=== PATIENT | male | born 1990 | race Caucasian/White ===

== ENCOUNTER 2016-02-18 12:38 | Outpatient (RCR) | payer OTHER ==
[~2016-02-18 12:38] MED LIST: CELE100C PO; HYDR-3720 PO; HYDR60TA; NAPR500T3; TAPE100T; ultram
== END 2016-05-18 | disposition home or self-care (01) ==
LOC: LAB 12:38
PROVIDERS: ATTEND Obstetrics & Gynecology
DX: N46.11 Organic oligospermia (principal)

== ENCOUNTER 2016-06-26 11:47 | Emergency (ER) | payer OTHER ==
[~2016-06-26] VITALS: Ht 182.9 cm; Wt 90.7 kg
[2016-06-26 11:50] VITALS: BP 134/109
[2016-06-26] MEDS ORDERED: ONDANSETRON 4 MG/2 ML (SDV) Z0FRAN ONE (11:53)
[2016-06-26] MEDS ORDERED: TRAM50TA2 (12:02)
[2016-06-26 12:09] LABS: BASOPHILS % (AUTO) 0 % (0-10); EOSINOPHILS # (AUTO) 0.1 10^3/uL (0.0-0.3); EOSINOPHILS % (AUTO) 1 % (0-10); LYMPHOCYTES # (AUTO) 1.8 X 10^3 (1.0-4.0); LYMPHOCYTES % (AUTO) 12 % (12-44); MEAN CORPUSCULAR HEMOGLOBIN 32 PG (25-34); MEAN CORPUSCULAR HGB CONC 36 G/DL (32-36); MEAN CORPUSCULAR VOLUME 88 FL (80-99); MONOCYTES # (AUTO) 0.5 X 10^3 (0.0-1.0); MONOCYTES % (AUTO) 4 % (0-12); NEUTROPHILS # (AUTO) 11.8 X 10^3 (1.8-7.8); NEUTROPHILS % (AUTO) 83 % (42-75); PLATELET COUNT 343 10^3/uL (130-400); RED BLOOD COUNT 5.34 10^6/uL (4.35-5.85); RED CELL DISTRIBUTION WIDTH 13.4 % (10.0-14.5); WHITE BLOOD COUNT 14.2 10^3/uL (4.3-11.0)
[2016-06-26 12:25] LABS: ALANINE AMINOTRANSFERASE 19 U/L (0-55); ALBUMIN 4.7 G/DL (3.2-4.5); ANION GAP 14 MMOL/L (5-14); ASPARTATE AMINO TRANSFERASE 18 U/L (5-34); BILIRUBIN,TOTAL 0.5 MG/DL (0.1-1.0); BLOOD UREA NITROGEN 11 MG/DL (7-18); BUN/CREATININE RATIO 13; CALCIUM 9.9 MG/DL (8.5-10.1); CARBON DIOXIDE 18 MMOL/L (21-32); CHLORIDE 109 MMOL/L (98-107); CREATININE SERUM 0.84 MG/DL (0.60-1.30); GFR ESTIMATED > 60; GLUCOSE 98 MG/DL (70-105); POTASSIUM 3.8 MMOL/L (3.6-5.0); SODIUM 141 MMOL/L (135-145); TOTAL PROTEIN 7.7 G/DL (6.4-8.2)
[2016-06-26 12:27] LABS: BAND NEUTROPHILS 4 %; EOSINOPHILS % (MANUAL) 2 %; LYMPHOCYTES % (MANUAL) 12 %; NEUTROPHILS % (MANUAL) 79 %
--- NOTE | 2016-06-26 12:46 | ED Abdominal Pain ---
General Chief Complaint: Abdominal/GI Problems Stated Complaint: VOMITING/BODY ACHES Nursing Triage Note: PT CO OF N/V/D SINCE MONDAY, PT PALE STATES IS WEAK Sepsis Screen: No Definite Risk Source of Information: Patient Exam Limitations: No Limitations History of Present Illness Time Seen By Provider: 12:42 Initial Comments The patient is a 25-year-old white male who presents today with a complaint of nausea vomiting diarrhea and generalized body aches. This apparently began 3 days ago. 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 His fluid intake has been poor and complicated by vomiting. He had an admission in August 2015 after being exposed to prolonged heat at work. He exhibited a decline in his renal function with a creatinine in the 2+ range. He has subsequently done well until now. Timing/Duration: 2-3 Days Severity/Quality: Moderate Location: Generalized Abdomen Radiation: No Radiation Activities at Onset: None Associated Symptoms: Denies Symptoms Allergies and Home Medications Allergies Coded Allergies: adhesive tape (Unverified Allergy, Unknown, 09/01/15) prednisone (Verified Adverse Reaction, Unknown, 08/29/15) Home Medications Tramadol HCl 50 Mg Tablet, #120 (Reported) Review of Systems Constitutional: see HPI EENTM: No Symptoms Reported Respiratory: No Symptoms Reported Cardiovascular: No Symptoms Reported Gastrointestinal: Abdominal Pain, Diarrhea, Nausea, Poor Appetite, Poor Fluid Intake, Vomiting Genitourinary: Other Musculoskeletal: muscle pain Skin: no symptoms reported Psychiatric/Neurological: No Symptoms Reported Endocrine: No Symptoms Reported Hematologic/Lymphatic: No Symptoms Reported Past Cvlndoj-Nwbver-Exxdku Hx Patient Social History Alcohol Use: Denies Use Recreational Drug Use: No Smoking Status: Current Everyday Smoker Type Used: Cigarettes Recent Foreign Travel: No Contact w/Someone Who Travel: No Recent Infectious Disease Expo: No Recent Hopitalizations: No (recently hospitalized for acute renal failure) Immunizations Up To Date Tetanus Booster (TDap): Less than 5yrs Seasonal Allergies Seasonal Allergies: Yes Surgeries HX Surgeries: Yes (back, hips) Surgeries: Orthopedic Respiratory Hx Respiratory Disorders: Yes Respiratory Disorders: Asthma Cardiovascular Hx Cardiac Disorders: No Neurological Hx Neurological Disorders: No Reproductive System Hx Reproductive Disorders: No Sexually Transmitted Disease: No HIV/AIDS: No Genitourinary Hx Genitourinary Disorders: Yes Genitourinary Disorders: Kidney Stones, Renal Failure Gastrointestinal Hx Gastrointestinal Disorders: Yes Gastrointestinal Disorders: Chronic Constipation Musculoskeletal Hx Musculoskeletal Disorders: Yes Musculoskeletal Disorders: Arthritis, Chronic Back Pain Endocrine Hx Endocrine Disorders: No HEENT HX ENT Disorders: No Loss of Vision: Denies Hearing Impairment: Denies Cancer Hx Cancer: No Psychosocial Hx Psychiatric Problems: No Integumentary HX Skin/Integumentary Disorder: No Blood Transfusions Hx Blood Disorders: No Adverse Reaction to a Blood Tr: No Family Medical History Family Medial History: Diabetes mellitus 19 FATHER (FAMILY HISTORY OF [place], CHF, LUNG CA, BREAST, CA, [place], DEMENTIA , AND DMTYPE 2) 19 MOTHER Physical Exam Vital Signs VS - Last 72 Hours, by Label 06/26/16 11:50 Temp 99.8 Pulse 79 Resp 18 B/P (MAP) 134/109 Pulse Ox 97 Capillary Refill : Less Than 3 Seconds General Appearance: moderate distress HEENT: normal ENT inspection, other (tongue is dry) Neck: full range of motion Respiratory: chest non-tender, lungs clear, normal breath sounds, no respiratory distress, no accessory muscle use Cardiovascular: normal peripheral pulses, regular rate, rhythm, no edema, no gallop, no JVD, no murmur Gastrointestinal: non tender, soft, no organomegaly, no pulsatile mass, abnormal bowel sounds (decreased) Extremities: normal range of motion, non-tender, normal inspection, no pedal edema, no calf tenderness, normal capillary refill, pelvis stable Back: normal inspection 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, no motor/sensory deficits, alert, normal mood/affect, oriented x 3 Skin: normal color, warm/dry Lymphatic: no adenopathy Progress/Results/Core Measures Results/Orders Lab Results Laboratory Tests Test 06/26/16 11:55 06/26/16 12:49 Range/Units White Blood Count 14.2 H 4.3-11.0 10^3/uL Red Blood Count 5.34 4.35-5.85 10^6/uL Hemoglobin 17.1 13.3-17.7 G/DL Hematocrit 47 40-54 % Mean Corpuscular Volume 88 80-99 FL Mean Corpuscular Hemoglobin 32 25-34 PG Mean Corpuscular Hemoglobin Concent 36 32-36 G/DL Red Cell Distribution Width 13.4 10.0-14.5 % Platelet Count 343 130-400 10^3/uL Mean Platelet Volume 10.0 7.4-10.4 FL Neutrophils (%) (Auto) 83 H 42-75 % Lymphocytes (%) (Auto) 12 12-44 % Monocytes (%) (Auto) 4 0-12 % Eosinophils (%) (Auto) 1 0-10 % Basophils (%) (Auto) 0 0-10 % Neutrophils # (Auto) 11.8 H 1.8-7.8 X 10^3 Lymphocytes # (Auto) 1.8 1.0-4.0 X 10^3 Monocytes # (Auto) 0.5 0.0-1.0 X 10^3 Eosinophils # (Auto) 0.1 0.0-0.3 10^3/uL Basophils # (Auto) 0.0 0.0-0.1 10^3/uL Neutrophils % (Manual) 79 % Lymphocytes % (Manual) 12 % Monocytes % (Manual) 3 % Eosinophils % (Manual) 2 % Band Neutrophils 4 % Dohle Bodies SLIGHT Blood Morphology Comment NORMAL Sodium Level 141 135-145 MMOL/L Potassium Level 3.8 3.6-5.0 MMOL/L Chloride Level 109 H 98-107 MMOL/L Carbon Dioxide Level 18 L 21-32 MMOL/L Anion Gap 14 5-14 MMOL/L Blood Urea Nitrogen 11 7-18 MG/DL Creatinine 0.84 0.60-1.30 MG/DL Estimat Glomerular Filtration Rate > 60 BUN/Creatinine Ratio 13 Glucose Level 98 70-105 MG/DL Calcium Level 9.9 8.5-10.1 MG/DL Total Bilirubin 0.5 0.1-1.0 MG/DL Aspartate Amino Transf (AST/SGOT) 18 5-34 U/L Alanine Aminotransferase (ALT/SGPT) 19 0-55 U/L Alkaline Phosphatase 81 40-136 U/L Total Protein 7.7 6.4-8.2 G/DL Albumin 4.7 H 3.2-4.5 G/DL Urine Color YELLOW Urine Clarity CLEAR Urine pH 7 5-9 Urine Specific Omega 1.020 1.016-1.022 Urine Protein 2+ H NEGATIVE Urine Glucose (UA) NEGATIVE NEGATIVE Urine Ketones 1+ H NEGATIVE Urine Nitrite NEGATIVE NEGATIVE Urine Bilirubin NEGATIVE NEGATIVE Urine Urobilinogen 1 NORMAL MG/DL Urine Leukocyte Esterase 1+ H NEGATIVE Urine RBC (Auto) 1+ H NEGATIVE Urine RBC NONE /HPF Urine WBC 5-10 H /HPF Urine Crystals NONE /LPF Urine Bacteria MODERATE H /HPF Urine Casts NONE /LPF Urine Mucus LARGE H /LPF Urine Culture Indicated YES My Orders Orders - PENNY RUBIO MD Ondansetron Injection (Zofran Injectio (06/26/16 11:53) Cbc With Automated Diff (06/26/16 12:05) Comprehensive Metabolic Panel (06/26/16 12:05) Ua Culture If Indicated (06/26/16 12:05) Manual Differential (06/26/16 11:55) Ns Iv 1000 Ml (Sodium Chloride 0.9%) (06/26/16 12:45) Ondansetron Injection (Zofran Injectio (06/26/16 13:00) Urine Culture (06/26/16 12:49) Ceftriaxone Injection (Rocephin Injectio (06/26/16 14:30) Ceftriaxone Injection (Rocephin Injectio (06/26/16 14:24) Medications Given in ED Current Medications Medications Dose Ordered Sig/Roni Route Start Time Stop Time Status Last Admin Dose Admin Ceftriaxone Sodium 1000 mg/ Sodium Chloride 50 ml @ 100 mls/hr ONCE ONCE IV 06/26/16 14:30 06/26/16 14:59 06/26/16 14:29 100 MLS/HR Ondansetron HCl 4 mg STK-MED ONCE .ROUTE 06/26/16 11:53 06/26/16 11:58 DC 06/26/16 12:04 8 MG Vital Signs/I&O Vital Sign - Last 12Hours 06/26/16 11:50 Temp 99.8 Pulse 79 Resp 18 B/P (MAP) 134/109 Pulse Ox 97 Blood Pressure Mean: 117 Departure Communication Progress Notes By virtue of hemoglobin the patient appears to be significantly dehydrated. White count is noted at 14,000. UA shows a specific gravity of 1.020 and 5-10 white cells. The urine has been plated for culture which will be available tomorrow. Accordingly given 1 g of Rocephin IV pending urine culture tomorrow. Impression Impression: Primary Impression: viral gastroenteritis Disposition: 01 HOME, SELF-CARE Condition: Improved Departure-Patient Inst. Decision time for Depature: 14:31 Referrals: NO,LOCAL PHYSICIAN (PCP) Primary Care Physician Patient Instructions: No Instuctions Given Add. Discharge Instructions: All discharge instructions reviewed with patient and/or family. Voiced understanding. Acquire Gatorade, flavor of your choice, and 7-Up. You need to take frequent small portions of the above to achieve 2 quarts per 24 hours. Use Zofran as necessary to control vomiting. Return to ER or see your provider if problems Scripts Ondansetron (Zofran Odt) 8 Mg Tab.rapdis 8 MG PO EVERY 4 HOURS Y for NAUSEA AND VOMITING, #10 TAB Prov: PENNY RUBIO MD 06/26/16 PENNY RUBIO MD June 26, 2016 12:46
[2016-06-26] MEDS: NS IV 1000 ML 1,000 ML IV SCH ×2 (12:48→13:49)
[2016-06-26] MEDS ORDERED: ONDANSETRON 4 MG/2 ML (SDV) Z0FRAN IVP ONE (13:00)
[2016-06-26 13:18] LABS: BILIRUBIN,URINE NEGATIVE (NEGATIVE); KETONES,URINE 1+ (NEGATIVE); LEUKOCYTE ESTERASE ,URINE 1+ (NEGATIVE); NITRITE,URINE NEGATIVE (NEGATIVE); PH,URINE 7 (5-9); PROTEIN,URINE 2+ (NEGATIVE); UROBILINOGEN,URINE 1 MG/DL (NORMAL)
[2016-06-26] MEDS ORDERED: cefTRIAXone 1 GM (ROCEPHIN) VIAL ONE (14:24)
[2016-06-26] MEDS ORDERED: cefTRIAXone INJECTION 1,000 MG in NS (IVPB) 50 ML IV ONE (14:30)
[2016-06-26] MEDS ORDERED: ONDA8TAB9 PO (14:36)
== END 2016-06-26 14:46 | disposition home or self-care (01) ==
LOC: EDUNIT# 11:47 → ER 11:48
DX: A08.4 Viral intestinal infection, unspecified (principal); R11.2 Nausea with vomiting, unspecified; F17.210 Nicotine dependence, cigarettes, uncomplicated
CPT/HCPCS: 36415; 80053; 81000; 85007; 85027; 87088; 96361; 96365; 96375

== ENCOUNTER → 2017-09-08 | Outpatient (CLI) | payer OTHER ==
[~2017-09-08] MED LIST changes: +NAPR-915; -NAPR500T3; +ONDA8TAB9 PO; +TRAM50TA2
[2017-09-08 17:36] LABS: SEMEN VOLUME 4.5 ML (1.5-5.0)
== END ==
LOC: LAB 16:57
PROVIDERS: ATTEND Obstetrics & Gynecology
DX: N46.11 Organic oligospermia (principal)
CPT/HCPCS: 89320